=== PATIENT | male | born 1965 | race Caucasian/White ===

== ENCOUNTER → 2019-12-23 14:14 | Outpatient (CLI) | payer OTHER, SELFPAY ==
--- NOTE | ~2019-12-23 | US_ITS ---
EXAMINATION: US retroperitoneal comp DATE: 12/23/2019 14:37 INDICATION: Chronic kidney disease, proteinuria TECHNIQUE: Multiple grayscale and Doppler ultrasound images of the kidneys were obtained. COMPARISON: None. FINDINGS: The right kidney measures 10.4 x 4.8 x 6.0 cm. The left kidney measures 11.3 x 5.9 x 6.2 cm . The kidneys demonstrate normal parenchymal echogenicity. There is no hydronephrosis. The bladder is normal. IMPRESSION: 1. Normal kidneys without hydronephrosis. Reviewed, dictated and finalized at location A.
== END ==
DX: N18.9 Chronic kidney disease, unspecified (principal)
CPT/HCPCS: 76770